=== PATIENT | female | born 1970 | race Caucasian/White ===

== ENCOUNTER 2016-11-09 20:59 | Emergency (ER) | payer OTHER, BC ==
[~2016-11-09] VITALS: Ht 172.7 cm; Wt 65.0 kg
[2016-11-09 21:01] VITALS: BP 198/86; PULSE 92; RESP 18; TEMP 97.8; O2SAT 99
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
== END 2016-11-09 22:12 | disposition home or self-care (01) ==
LOC: NEPE 20:59
DX: M62.838 Other muscle spasm (principal); M54.2 Cervicalgia; R51 Headache; I10 Essential (primary) hypertension; V49.59XA Passenger injured in collision with other motor vehicles in traffic accident, initial encounter; Y92.410 Unspecified street and highway as the place of occurrence of the external cause
CPT/HCPCS: 99283